=== PATIENT | male | born 2000 | race Caucasian/White ===

== ENCOUNTER 2020-05-19 13:35 | Observation (INO) ==
[2020-05-19] MEDS ORDERED: cefOXitin 1,000 MG in 0.9 % Sodium Chloride Mini Bag 100 ML IVPB ONE (14:01)
[2020-05-19 14:10] LABS: Basophils # 0.1 K/mcL (0.0-0.2); Basophils % 0.4 %; Eosinophils % 0.1 %; Hematocrit 47.3 % (37.5-50.1); Hemoglobin 15.9 g/dL (12.9-16.9); Immature Granulocytes % 0.3 % (0-4); Lymphocytes # 1.7 K/mcL (0.6-4.6); Lymphocytes % 9.1 %; Mean Corpuscular HGB Conc 33.6 g/dL (31.6-35.5); Mean Corpuscular Hemoglobin 28.3 pg (28.0-33.3); Mean Corpuscular Volume 84.2 fL (83.0-100.0); Mean Platelet Volume 10.8 fL (9.4-12.4); Monocytes # 1.5 K/mcL (0.0-1.3); Monocytes % 8.2 %; Neutrophils # 15.2 K/mcL (1.6-8.9); Platelet Count 254 K/mcL (140-400); Red Blood Count 5.62 M/mcL (4.19-5.50); Red Cell Distribution Width 12.1 % (11.5-14.5); Segmented Neutrophils % 81.9 %; White Blood Count 18.5 K/mcL (4.3-11.1)
[2020-05-19 14:29] LABS: Alanine Aminotransferase 23 Units/L (7-52); Albumin 4.7 g/dL (3.5-5.7); Albumin/Globulin Ratio 1.6 (1.1-2.2); Alkaline Phosphatase 66 Units/L (34-104); Aspartate Amino Transferase 12 Units/L (13-39); BUN/Creatinine Ratio 9 (6-26); Blood Urea Nitrogen 12 mg/dL (6-20); Calcium 9.7 mg/dL (8.6-10.3); Carbon Dioxide 27 mEq/L (23-29); Chloride 101 mEq/L (98-107); Globulin 2.9 g/dL (2.4-3.5); Glucose 120 mg/dL (70-105); Lipase 8 Units/L (11-82); Osmolality,Calculated 283 (280-300); Potassium 3.7 mEq/L (3.5-5.1); Sodium 136 mEq/L (136-145); Total Protein 7.6 g/dL (6.4-8.9); eGFR For African Americans > 60; eGFR For Non-African Americans > 60
[2020-05-19 15:55] LABS: Adenovirus Not Detected (Not Detect); Coronavirus 229E Not Detected (Not Detect)
[2020-05-19 15:56] LABS: Bordetella Pertussis Not Detected (Not Detect); Chlamydophila pneumoniae Not Detected (Not Detect); Coronavirus HKU1 Not Detected (Not Detect); Coronavirus NL63 Not Detected (Not Detect); Coronavirus OC43 Not Detected (Not Detect); Human Metapneumovirus Not Detected (Not Detect); Human Rhinovirus/Enterovirus Not Detected (Not Detect); Influenza A Subtype 2009 H1 Not Detected (Not Detect); Influenza B Not Detected (Not Detect); Mycoplasma pneumoniae Not Detected (Not Detect); Parainfluenza Virus 1 Not Detected (Not Detect); Parainfluenza Virus 2 Not Detected (Not Detect); Parainfluenza Virus 3 Not Detected (Not Detect); Parainfluenza Virus 4 Not Detected (Not Detect); Respiratory Syncytial Virus Not Detected (Not Detect); SARS-CoV-2 Not Detected (Not Detect)
[2020-05-19 16:23] LABS: Mucus,Urine Few per lpf (None-Few); RBC,Urine 0-3 per hpf (0-3); WBC,Urine 0-3 per hpf (0-3)
[2020-05-19 16:31] LABS: Bacteria,Urine Few per hpf (None-Few); Bilirubin,Urine Negative (Negative); Blood,Urine Negative (Negative); Clarity,Urine Clear (Clear); Color,Urine Yellow (Yellow); Glucose,Urine (UA) Normal (Normal); Ketones,Urine Negative (Negative); Leukocyte Esterase,Urine Negative (Negative); Nitrite,Urine Negative (Negative); PH,Urine 6.5 pH Units (5.0-8.0); Protein,Urine 30 mg/dL (Neg-Trace); Specific Gravity,Urine > 1.030 (1.010-1.025); Urobilinogen,Urine Normal (Normal)
[2020-05-19] MEDS ORDERED: Acetaminophen IV 1,000 MG/100 ML BAG IVPB ONE (17:42)
[2020-05-19] MEDS ORDERED: Famotidine 20 MG/2 ML VIAL ONE (17:43)
[2020-05-19] MEDS ORDERED: *HR* HYDROmorphone PF 0.5 MG/0.5 ML SYRINGE IVP PRN ×2 (18:06→20:06)
[2020-05-19] MEDS ORDERED: Ondansetron 4 MG/2 ML VIAL IVP PRN ×3 (18:06→20:06)
[2020-05-19] MEDS ORDERED: *HR* OxyCODONE Immed Rel 5 MG TABLET PO PRN ×2 (18:06→20:06)
[2020-05-19] MEDS ORDERED: CefOXitin 1,000 MG VIAL ONE (18:10)
[2020-05-19] MEDS ORDERED: *HR* Succinylcholine 200 MG/10 ML VIAL IVP ONE (18:14)
[2020-05-19] MEDS ORDERED: *HR* Propofol 200 MG/20 ML VIAL IVP ONE (18:14)
[2020-05-19] MEDS ORDERED: *HR* Midazolam HCl 2 MG/2 ML VIAL ONE (18:14)
[2020-05-19] MEDS ORDERED: *HR* FentaNYL (PF) 100 MCG/2 ML VIAL ONE (18:14)
[2020-05-19] MEDS ORDERED: Lidocaine HCL 4 ML Topical Solution (Laryng-O-Jet Kit Sterile Pak) TP ONE (18:14)
[2020-05-19] MEDS ORDERED: Lidocaine -MPF 2% 2 ML VIAL ONE (18:14)
[2020-05-19] MEDS ORDERED: *HR* Rocuronium Bromide 50 MG/5 ML VIAL ONE (18:38)
[2020-05-19] MEDS ORDERED: Dexamethasone 4 MG/ML VIAL ONE (18:39)
[2020-05-19] MEDS ORDERED: Ketorolac 30 MG/ML VIAL ONE (19:09)
[2020-05-19] MEDS: 0.9 % Sodium Chloride 1,000 ML IVC SCH (20:39)
[2020-05-19] MEDS: cefOXitin 2,000 MG in Water for inj. (sterile) 20 ML IVP SCH ×2 (20:39→23:24)
[2020-05-20] MEDS: cefOXitin 2,000 MG in Water for inj. (sterile) 20 ML IVP SCH ×2 (07:29→15:01)
[2020-05-20] MEDS: 0.9 % Sodium Chloride 1,000 ML IVC SCH (09:24)
[2020-05-20 10:30] VITALS: BP 106/56
[2020-05-20] MEDS ORDERED: Ibuprofen 800 MG TABLET PO ONE (11:53)
== END 2020-05-20 15:38 | disposition home or self-care (01) ==
LOC: 3ANU 13:35 → EMEROOARM 13:35 → 3ANU 17:38
PROVIDERS: ADMIT Surgery; ATTEND Surgery